=== PATIENT | female | born 1975 | race Caucasian/White ===

== ENCOUNTER 2017-10-14 11:56 | Emergency (ER) | payer OTHER ==
[~2017-10-14] VITALS: Ht 142.2 cm; Wt 76.5 kg
[2017-10-14 12:10] VITALS: TEMP 36.9
[2017-10-14] MEDS ORDERED: SODIUM CHLORIDE 0.9% 1000ML 1,000 ML IV STA (12:10)
[2017-10-14 12:15] VITALS: O2SAT 96; Ht 142.2 cm; Wt 76.5 kg
--- NOTE | 2017-10-14 12:20 | EMERGENCY ROOM VISIT NOTE ---
History Report prepared by Amy: Delphine Mancia Under the Supervision of: Dr. Ernesto Morgan M.D. First contact with patient: 12:02 Stated Complaint: TACHYCARDIA / VITAL History of Present Illness The patient is a 42 year old white female with a past medical history of cardiac arrest this month who presents to the ED with a cc of persistent SOB beginning 26 days ago. She notes that she is unable to eat as usual. The patient denies a cough, swelling in legs, nausea, or vomiting. She states she is unsure if she has a history of blood clots. 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 The patient's pre-hospital EKG appears to show SVT. Source of History: patient Onset: 26 days ago Quality: other (SOB) Timing: other (persistent) Associated Symptoms: + chills, No cough, No nausea, No vomiting Note: Associated symptom: not eating as usual. Denies: swelling in legs Review of Systems See HPI for pertinent positives and negatives. A total of ten systems were reviewed and were otherwise negative. Past Medical & Surgical Medical Problems: (1) Cardiac arrest (2) SOB (shortness of breath) Family History No pertinent family history stated. Social History Smoking Status: Never Smoker Housing Status: other ([facility]) Current/Historical Medications Scheduled Aripiprazole (Abilify), 5 MG PO DAILY Atorvastatin (Lipitor), 20 MG PO DAILY Budesonide/Formoterol Fumarate (Symbicort 160/4.5 Inhaler ), 2 PUFFS INH BID Diltiazem Hcl Coated Beads (Cardizem Cd), 180 MG PO DAILY Escitalopram (Lexapro), 10 MG PO DAILY Ferrous Sulfate (Kp Ferrous Sulfate), 325 MG PO DAILY Gabapentin (Neurontin), 300 MG PO TID Levothyroxine Sodium (Synthroid), 75 MCG PO DAILY Metoprolol Tartrate (Lopressor) (Lopressor), 25 MG PO DAILY Pantoprazole Sodium (Protonix), 20 MG PO DAILY Propranolol (Inderal), 20 MG PO TID Sucralfate (Carafate), 1 GM PO QID Allergies Coded Allergies: Amoxicillin (Unverified Allergy, Unknown, unk, 10/14/17) Aspirin (Unverified Allergy, Unknown, unk, 10/14/17) Chocolate (Unverified Allergy, Unknown, hives, 10/14/17) Ciprofloxacin (Unverified Allergy, Unknown, hives, 10/14/17) Codeine (Unverified Allergy, Unknown, unk, 10/14/17) Iodine (Unverified Allergy, Unknown, unk, 10/14/17) Latex (Unverified Allergy, Unknown, dermatitis, 10/14/17) Penicillins (Unverified Allergy, Unknown, unk, 10/14/17) Quinolones (Unverified Allergy, Unknown, unk, 10/14/17) Sulfamethizole (Unverified Allergy, Unknown, unk, 10/14/17) Physical Exam Vital Signs Date Time Temp Pulse Resp B/P (MAP) Pulse Ox O2 Delivery O2 Flow Rate FiO2 10/14/17 15:46 111 16 146/61 99 Room Air 10/14/17 13:46 94 18 100/66 96 Room Air 10/14/17 12:15 96 Room Air 10/14/17 12:11 128 10/14/17 12:10 36.9 131 18 135/59 96 Room Air Physical Exam GENERAL: Awake, alert, well-appearing, NAD. obese HENT: Normocephalic, atraumatic. Edentulous EYES: Normal conjunctiva. Sclera non-icteric. PERRL. No anisocoria. NECK: Supple. No nuchal rigidity. FROM. RESPIRATORY: CTAB, no rhonchi, wheezing, crackles CARDIAC: Tachycardic rate, regular rhythm. no MRG ABDOMEN: Soft, NTND, BS+ MSK: No chest wall TTP, no LE edema, no calf pain NEURO: GCS 15, CN 2-12 intact, moves all 4s on command SKIN: No rash or jaundice noted. Medical Decision & Procedures ER Provider Diagnostic Interpretation: Radiology results as stated below per my review and radiologist interpretation: CHEST ONE VIEW PORTABLE HISTORY: 42 years-old Female EVALUATE RESPIRATORY DISTRESS.DYSPNEA acute respiratory distress COMPARISON: None available TECHNIQUE: Portable AP view of the chest FINDINGS: Cardiomediastinal and hilar silhouettes are within normal limits. There is no pneumothorax, pleural effusion, focal airspace consolidation or overt pulmonary edema. The bones of the chest appear grossly intact. IMPRESSION: No acute process. The above report was generated using voice recognition software. It may contain grammatical, syntax or spelling errors. Electronically signed by: Stephen Morales M.D. 10/14/2017 12:29 PM Dictated Date/Time: 10/14/2017 12:28 PM Laboratory Results 10/14/17 12:49 Red Blood Count 4.70, Mean Corpuscular Volume 84.9, Mean Corpuscular Hemoglobin 27.0, Mean Corpuscular Hemoglobin Concent 31.8, Mean Platelet Volume 8.9, Neutrophils (%) (Auto) 57.3, Lymphocytes (%) (Auto) 32.1, Monocytes (%) (Auto) 7.8, Eosinophils (%) (Auto) 0.7, Basophils (%) (Auto) 0.3, Neutrophils # (Auto) 6.32, Lymphocytes # (Auto) 3.54, Monocytes # (Auto) 0.86, Eosinophils # (Auto) 0.08, Basophils # (Auto) 0.03 10/14/17 12:49 Test 10/14/17 12:49 White Blood Count 11.03 K/uL (4.8-10.8) Red Blood Count 4.70 M/uL (4.2-5.4) Hemoglobin 12.7 g/dL (12.0-16.0) Hematocrit 39.9 % (37-47) Mean Corpuscular Volume 84.9 fL (80-100) Mean Corpuscular Hemoglobin 27.0 pg (25-34) Mean Corpuscular Hemoglobin Concent 31.8 g/dl (32-36) Platelet Count 248 K/uL (130-400) Mean Platelet Volume 8.9 fL (7.4-10.4) Neutrophils (%) (Auto) 57.3 % Lymphocytes (%) (Auto) 32.1 % Monocytes (%) (Auto) 7.8 % Eosinophils (%) (Auto) 0.7 % Basophils (%) (Auto) 0.3 % Neutrophils # (Auto) 6.32 K/uL (1.4-6.5) Lymphocytes # (Auto) 3.54 K/uL (1.2-3.4) Monocytes # (Auto) 0.86 K/uL (0.11-0.59) Eosinophils # (Auto) 0.08 K/uL (0-0.5) Basophils # (Auto) 0.03 K/uL (0-0.2) RDW Standard Deviation 48.4 fL (36.4-46.3) RDW Coefficient of Variation 15.5 % (11.5-14.5) Immature Granulocyte % (Auto) 1.8 % Immature Granulocyte # (Auto) 0.20 K/uL (0.00-0.02) Prothrombin Time 9.7 SECONDS (9.0-12.0) Prothromb Time International Ratio 0.9 (0.9-1.1) Activated Partial Thromboplast Time 21.9 SECONDS (21.0-31.0) Partial Thromboplastin Ratio 0.8 Anion Gap 7.0 mmol/L (3-11) Est Creatinine Clear Calc Drug Dose 85.8 ml/min Estimated GFR () 121.4 Estimated GFR (Non- 104.8 BUN/Creatinine Ratio 21.6 (10-20) Calcium Level 8.6 mg/dl (8.5-10.1) Magnesium Level 2.0 mg/dl (1.8-2.4) Troponin I 0.019 ng/ml (0-0.045) Pro-B-Type Natriuretic Peptide 63 pg/ml (0-450) Thyroid Stimulating Hormone (TSH) 3.560 uIu/ml (0.300-4.500) Laboratory results reviewed by me Medications Administered Medications (Trade) Dose Ordered Sig/[place] Route Start Time Stop Time Status Last Admin Dose Admin Sodium Chloride 1,000 ml @ 999 mls/hr Q1H1M STAT IV 10/14/17 12:10 10/14/17 13:10 DC 10/14/17 12:10 999 MLS/HR Diltiazem HCl (Cardizem Cd Cap) 180 mg ONE STAT PO 10/14/17 13:23 10/14/17 13:25 DC 10/14/17 13:44 180 MG Diltiazem HCl (Cardizem Inj) 20 mg NOW STAT IV 10/14/17 13:23 10/14/17 13:25 DC 10/14/17 13:43 20 MG Metoprolol Tartrate (Lopressor Tab) 25 mg ONE STAT PO 10/14/17 15:21 10/14/17 15:22 DC 10/14/17 15:46 25 MG Propranolol HCl (Inderal Tab) 20 mg NOW STAT PO 10/14/17 16:27 10/14/17 16:28 DC 10/14/17 16:27 20 MG ECG Per My Interpretation Indication: SOB/dyspnea Rate (beats per minute): 129 Rhythm: sinus tachycardia Findings: other (normal intervals. normal axis. no T-wave inversion. no ST segment changes.) Change: no significant change (repeat EKG shows no acute change) ED Course 1204: The patient was evaluated in room A12B. A complete history and physical exam was performed. 1222: I performed a bedside ultrasound. 1321: I reevaluated and updated the patient. 1414: I reevaluated the patient. Discussed results and discharge instructions: she verbalized understanding and agreement. The patient is ready for discharge to the [facility]. Medical Decision Nursing notes reviewed. Ancillary studies and prior records reviewed. The patient is a 42 year old white female with a past medical history of cardiac arrest this month who presents to the ED with a cc of persistent SOB beginning 26 days ago Etiologies such as infections, reactive airway disease, pneumonia, pneumothorax , COPD, CHF, cardiac ischemia, pulmonary embolism, musculoskeletal, gastrointestinal, as well as others were entertained. Patient was seen and evaluated the bedside. Patient had been complaining some shortness of breath ongoing since September 18. Patient was noted to be in likely SVT per EMS EKG and was referred here for further evaluation and treatment. Of note the patient did not take her morning medications which include beta blockers and calcium channel blockers. Patient does not appear very volume overloaded and patient is breathing well and is not hypoxic nor tachypneic. Patient's repeat EKG does show sinus tachycardia. Bedside ultrasound was attempted difficult cardiac views but that does not seem to be in any evidence of pericardial effusion the patient appears to have reasonable squeeze. Patient 's IVC is very flat with respiratory inspiration. I believe she would benefit from fluids. Patient did blood work completed, troponin, chest x-ray, BNP. Patient was ordered IV dilt as well as her p.o. home dose. Patient does have mild elevations in white blood cell count 11,000. The patient does not have any anemia. Troponin is detectable but not elevated. I believe this is likely 2/2 elevated rate since patient was >230. BNP is not elevated. Chest x-ray is clear. The patient heart rate improved with fluids as well as her IV and p.o. doses. I believe she is suitable for outpatient follow-up and treatment at this time. I believe her shortness of breath is related to her very elevated heart rate. Given the chronicity of her shortness of breath I do not believe that she is developed PE or DVT given the patient's history and physical exam with concomitant SVT and tachycardia. Prior to discharge the patient was complaining of chest pain. A repeat EKG was obtained. This does not show any acute changes. The patient was given her home dose of Inderal. Patient was given strict follow-up, discharge, and return precautions. All questions were answered. Patient was deemed suitable for outpatient follow-up at this time. Patient agreed with the plan of care and was safely discharged home. Medication Reconcilliation Current Medication List: was personally reviewed by me Blood Pressure Screening Patient's blood pressure: Normal blood pressure Blood pressure disposition: Did not require urgent referral Impression Primary Impression: Tachycardia Additional Impressions: SOB (shortness of breath) SVT (supraventricular tachycardia) Critical Care I have personally spent greater than 35 minutes of critical care time in the direct management of this patient. This includes bedside care, interpretation of diagnostic studies, and testing, discussion with consultants, patient, and family members, and other required patient management activities. This 35 minutes is in excess of all separately billable procedures. Scribe Attestation The scribe's documentation has been prepared under my direction and personally reviewed by me in its entirety. I confirm that the note above accurately reflects all work, treatment, procedures, and medical decision making performed by me. Departure Information Dispostion Home / Self-Care Forms HOME CARE DOCUMENTATION FORM, IMPORTANT VISIT INFORMATION, WORK / SCHOOL INSTRUCTIONS Patient Instructions My [facility], Tachycardia Additional Instructions Please return to the emergency department if you have worsening or recurrent symptoms not amenable to at-home treatment. Please call for a follow-up appointment with her primary care physician. Please take your medications as prescribed. If you have other concerns and/or complaints please feel free to also call your primary care physician's office or return the ED for further evaluation, management, and treatment. Take your medications as prescribed. You have been examined and treated today on an emergency basis only. This is not a substitute for, or an effort to provide, complete comprehensive medical care. It is impossible to recognize and treat all injuries or illnesses in a single emergency department visit. It is therefore important that you follow up closely with [facility], your PCP, and/or your specialist(s). Call as soon as possible for an appointment. Thank you for your time and consideration. I look forward to speaking with you again soon. Please don't hesitate to call us if you have any questions. Problem Qualifiers
--- NOTE | 2017-10-14 12:30 | DIAGNOSTIC IMAGING REPORT ---
CHEST ONE VIEW PORTABLE HISTORY: 42 years-old Female EVALUATE RESPIRATORY DISTRESS.DYSPNEA acute respiratory distress COMPARISON: None available TECHNIQUE: Portable AP view of the chest FINDINGS: Cardiomediastinal and hilar silhouettes are within normal limits. There is no pneumothorax, pleural effusion, focal airspace consolidation or overt pulmonary edema. The bones of the chest appear grossly intact. IMPRESSION: No acute process. The above report was generated using voice recognition software. It may contain grammatical, syntax or spelling errors. Electronically signed by: Stephen Morales M.D. 10/14/2017 12:29 PM Dictated Date/Time: 10/14/2017 12:28 PM
[2017-10-14] MEDS ORDERED: ESCI10TA17 PO (12:35)
[2017-10-14] MEDS ORDERED: METO25TA56 PO (12:35)
[2017-10-14] MEDS ORDERED: SYMIN160 INH (12:35)
[2017-10-14] MEDS ORDERED: CRDCD/180 PO (12:35)
[2017-10-14] MEDS ORDERED: SUCR1TAB29 PO (12:35)
[2017-10-14] MEDS ORDERED: PROP20TA67 PO (12:35)
[2017-10-14] MEDS ORDERED: ATOR-22 PO (12:35)
[2017-10-14] MEDS ORDERED: FERR1TAB13 PO (12:35)
[2017-10-14] MEDS ORDERED: LEVO75TA PO (12:35)
[2017-10-14] MEDS ORDERED: ABL/5 PO (12:35)
[2017-10-14] MEDS ORDERED: GABA-113 PO (12:35)
[2017-10-14] MEDS ORDERED: PRT/20 PO (12:35)
[2017-10-14 13:19] LABS: BASO % 0.3 %; BASO ABS # 0.03 K/uL (0-0.2); EOS % 0.7 %; EOS ABS # 0.08 K/uL (0-0.5); HEMATOCRIT 39.9 % (37-47); HEMOGLOBIN 12.7 g/dL (12.0-16.0); LYMPH % 32.1 %; LYMPH ABS # 3.54 K/uL (1.2-3.4); MEAN CELL VOLUME 84.9 fL (80-100); MEAN CORPUSCULAR HGB CONC 31.8 g/dl (32-36); MEAN PLATELET VOLUME 8.9 fL (7.4-10.4); MONO % 7.8 %; MONO ABS # 0.86 K/uL (0.11-0.59); NEUT % 57.3 %; NEUT ABS # 6.32 K/uL (1.4-6.5); PLATELET COUNT 248 K/uL (130-400); RED CELL DISTRIBUTION WIDTH CV 15.5 % (11.5-14.5); RED CELL DISTRIBUTION WIDTH SD 48.4 fL (36.4-46.3); WHITE BLOOD COUNT 11.03 K/uL (4.8-10.8)
[2017-10-14] MEDS ORDERED: DILTIAZEM HCL 5 MG/ML 5 ML VIAL IV STA (13:23)
[2017-10-14] MEDS ORDERED: DILTIAZEM HCL 180 MG CAPCR PO STA (13:23)
[2017-10-14 13:48] LABS: CALCIUM 8.6 mg/dl (8.5-10.1); CREATININE 0.72 mg/dl (0.60-1.20); POTASSIUM 3.7 mmol/L (3.5-5.1)
[2017-10-14 13:53] LABS: INR 0.9 (0.9-1.1); PTT PATIENT 21.9 SECONDS (21.0-31.0)
[2017-10-14] MEDS ORDERED: METOPROLOL TARTRATE 25 MG TAB PO STA (15:21)
[2017-10-14] MEDS ORDERED: PROPRANOLOL HCL 20 MG TAB PO STA (16:27)
[2017-10-14] MEDS ORDERED: PROPRANOLOL HCL 10 MG TAB ONE (16:37)
[2017-10-14 17:03] VITALS: BP 128/81; PULSE 93; O2SAT 96
== END 2017-10-14 17:05 | disposition home or self-care (01) ==
LOC: EDBD 11:56 → C.EDA 11:57
DX: R00.0 Tachycardia, unspecified (principal); R06.02 Shortness of breath; R94.31 Abnormal electrocardiogram [ECG] [EKG]; I25.2 Old myocardial infarction; Z79.899 Other long term (current) drug therapy; Z88.1 Allergy status to other antibiotic agents; Z88.6 Allergy status to analgesic agent; Z91.018 Allergy to other foods; Z88.0 Allergy status to penicillin; Z91.048 Other nonmedicinal substance allergy status; Z88.2 Allergy status to sulfonamides